=== PATIENT | male | born 1980 | race Caucasian/White ===

== ENCOUNTER 2024-12-28 11:57 | Emergency (ER) | payer OTHER ==
[2024-12-28] MEDS: Diphtheria,Pertussis(Acell),Tetanus Vaccine 0.5 ML Syringe IM ONE (12:23)
== END 2024-12-28 12:58 | disposition home or self-care (01) ==
LOC: JD.ED 11:57
DX: Z88.0 Allergy status to penicillin (principal); Z79.82 Long term (current) use of aspirin
CPT/HCPCS: 73090; 73110; 73590; 90471; 90715; 99283; A9270